=== PATIENT | male | born 1950 | race Caucasian/White ===

== ENCOUNTER 2017-01-15 15:53 | Emergency (ER) | payer MEDICARE ==
[~2017-01-15] VITALS: Ht 177.8 cm; Wt 95.0 kg
[~2017-01-15 15:53] MED LIST: ALLOPURINOL300 MG PO; AMARYL4 MG PO; ASPIRIN LOW DOS81 M2 PO; ASPIRIN325 MG PO; FLEXERIL OR; FOSINOPRIL SODI20 MG PO; FOSINOPRIL10 MG PO; FOSINOPRIL20 MG PO; GLIMEPIRIDE4 MG PO; HYDRALAZINE100 MG PO; HYDRALAZINE25 MG PO; HYDRALAZINE50 MG PO; JANUVIA100 MG PO; LIPITOR40 M1 PO; LIPITOR40 MG PO; LISINOPRIL20 MG PO; LORTAB 5-325 MG1 TAB PO; METFORMIN1000 MG PO; METFORMIN500 MG PO; METOPROLOL TART25 MG PO; METOPROLOL TART50 MG PO; NAPROSYN500 MG OR; PAXIL40 MG PO; PLAVIX75 MG PO; SERTRALINE100 MG PO; SERTRALINE50 MG PO; SOMA350 MG PO; TIZANIDINE4 MG PO; ZPAK PO; [UNRECOGNIZED DRUG - REMARK]
[2017-01-15] MEDS ORDERED: AUGMENTIN500TAB PO (16:54)
[2017-01-15 16:58] VITALS: BP 131/76
[2017-01-22] MEDS ORDERED: ASPIRIN81 MG PO (10:46)
[2017-01-22] MEDS ORDERED: METFORMIN500 MG PO (10:47)
[2017-01-22] MEDS ORDERED: SERTRALINE100 MG PO (10:47)
== END 2017-01-15 17:06 | disposition home or self-care (01) ==
LOC: ED 15:53
PROC: 0HDRXZZ Extraction of Toe Nail, External Approach (ICD-10-PCS; principal; 2017-01-15)
DX: S91.201A Unspecified open wound of right great toe with damage to nail, initial encounter (principal); W22.03XA Walked into furniture, initial encounter; Y92.009 Unspecified place in unspecified non-institutional (private) residence as the place of occurrence of the external cause

== ENCOUNTER 2017-01-25 07:55 | Day surgery (SDC) | payer MEDICARE ==
[~2017-01-25 07:55] MED LIST changes: +ASPIRIN81 MG PO; +AUGMENTIN500TAB PO
[2017-01-25 12:36] VITALS: BP 108/60
== END 2017-01-25 11:15 | disposition home or self-care (01) ==
LOC: ENDO 07:55 → ORM 10:45 → ENDO 10:45
PROVIDERS: ATTEND Internal Medicine Gastroenterology
PROC: 0DBK8ZX Excision of Ascending Colon, Via Natural or Artificial Opening Endoscopic, Diagnostic (ICD-10-PCS; principal; 2017-01-25)
PROC: 0DBL8ZX Excision of Transverse Colon, Via Natural or Artificial Opening Endoscopic, Diagnostic (ICD-10-PCS; 2017-01-25)
PROC: 0DBN8ZX Excision of Sigmoid Colon, Via Natural or Artificial Opening Endoscopic, Diagnostic (ICD-10-PCS; 2017-01-25)
PROC: 0DBP8ZX Excision of Rectum, Via Natural or Artificial Opening Endoscopic, Diagnostic (ICD-10-PCS; 2017-01-25)
PROC: 0DB58ZX Excision of Esophagus, Via Natural or Artificial Opening Endoscopic, Diagnostic (ICD-10-PCS; 2017-01-25)
DX: K59.00 Constipation, unspecified (principal); D12.7 Benign neoplasm of rectosigmoid junction; D12.2 Benign neoplasm of ascending colon; D12.3 Benign neoplasm of transverse colon; D12.5 Benign neoplasm of sigmoid colon; K64.8 Other hemorrhoids; K64.4 Residual hemorrhoidal skin tags; K21.9 Gastro-esophageal reflux disease without esophagitis; R13.10 Dysphagia, unspecified; K22.8 Other specified diseases of esophagus; K29.70 Gastritis, unspecified, without bleeding; Q40.8 Other specified congenital malformations of upper alimentary tract; Q39.8 Other congenital malformations of esophagus; F17.200 Nicotine dependence, unspecified, uncomplicated; I10 Essential (primary) hypertension; E11.9 Type 2 diabetes mellitus without complications; E78.00 Pure hypercholesterolemia, unspecified; Z80.0 Family history of malignant neoplasm of digestive organs

== ENCOUNTER → 2018-05-22 | Outpatient (REF) | END | disposition home or self-care (01) | DRG 642 | LOC: LAB 09:20 | PROVIDERS: ATTEND Internal Medicine Geriatric Medicine | DX: E78.5 Hyperlipidemia, unspecified (principal); I63.9 Cerebral infarction, unspecified; I10 Essential (primary) hypertension; E11.9 Type 2 diabetes mellitus without complications; M10.9 Gout, unspecified ==

== ENCOUNTER 2024-05-11 13:40 | Observation (INO) | payer MEDICARE ==
[~2024-05-11] VITALS: Ht 180.3 cm; Wt 96.1 kg
[2024-05-11] VITALS (38 sets, daily range): BP systolic 104–148; BP diastolic 48–101
[~2024-05-11 13:40] MED LIST changes: +AMLODIPINE BESYL5 MG PO; +METFORMIN HCL1000 MG PO; +TAMSULOSIN0.4 MG PO
--- NOTE | 2024-05-11 13:40 | NUR ---
PT TO ER ROOM 4 VIA EMS.
[2024-05-11] MEDS ORDERED: SODIUM CHLORIDE 0.9% 1,000 ML IV ONE (13:55)
[2024-05-11] MEDS ORDERED: cefTRIAXone SODIUM 2 GM in SODIUM CHLORIDE 0.9% 100 ML IV ONE (13:55)
[2024-05-11 14:03] LABS: URINE BLOOD DIPSTICK Trace-lysed (NEGATIVE); URINE GLUCOSE - DIPSTICK Negative (NEGATIVE); URINE KETONE Trace mg/dL (NEGATIVE); URINE NITRITE - DIPSTICK Negative (Negative); URINE PROTEIN - DIPSTICK 100 mg/dL (NEG-TRACE); URINE UROBILINOGEN - DIPSTICK 0.2 E.U./dL (0.2)
[2024-05-11 14:07] LABS: URINE COLOR Yellow; URINE LEUK ESTERASE Small (NEGATIVE)
[2024-05-11 14:26] LABS: URINE RBC 0-2 RBC/hpf (0-5)
[2024-05-11 14:27] LABS: URINE BACTERIA FEW hpf; URINE MUCUS MODERATE hpf (NONE-FEW); URINE SQUAMOUS EPITHELIAL CELL FEW EPI/hpf (0-FEW); URINE WBC 20-50 WBC/hpf (0-5)
--- NOTE | 2024-05-11 14:45 | NUR ---
PT URINATED ON HIMSELF. PT CLEANED AND LINEN CHANGED. EXERNAL MALE CATH CONNECTED.
[2024-05-11 15:21] LABS: BASO% 0.2 % (0-3); HEMATOCRIT 29.5 % (39.0-50.0); HEMOGLOBIN 8.8 g/dl (14.0-18.0); IMMATURE GRANULOCYTES 0.5 % (0.0-5.0); LYMPH% 8.8 % (15-41); MEAN CELL VOLUME 86.5 fL CALC (80.0-100.0); MEAN CORPUSCULAR HGB 25.8 pG CALC (26.0-32.0); MEAN CORPUSCULAR HGB CONC 29.8 g/dL CAL (32.0-36.0); MONO% 7.4 % (2-13); NEUT# 10.61 thou/uL (1.82-7.42); NEUT% 83.1 % (42-76); RED BLOOD COUNT 3.41 mill/uL (4.70-6.10); RED CELL DISTRI WIDTH 15.6 % (11.5-15.5)
[2024-05-11 15:32] LABS: ALBUMIN 3.3 g/dL (3.2-5.0); BILIRUBIN, TOTAL 0.7 mg/dL (0.2-1.3); CREATININE 1.3 mg/dL (0.7-1.3); TOTAL PROTEIN 6.4 g/dL (6.3-8.2)
--- NOTE | 2024-05-11 16:30 | NUR ---
PT RETURN FROM CT. PT HAS URINATED ON HIMSELF. PT CLEANED AND LINEN CHANGED.
[2024-05-11] MEDS ORDERED: ACETAMINOPHEN 325 MG/TAB PO PRN (17:25)
[2024-05-11] MEDS ORDERED: MAGNESIUM HYDROXIDE 30 ML UDC PO PRN (17:25)
--- NOTE | 2024-05-11 17:33 | NUR ---
PT UNAWARE OF MEDICATINS. PTS SISTER IS AT BEEDSIDE AND LEFT WITH PTS BELOBGING TO GO HOME AND GET MED LIST. SISTER RPORTS SHE WILL BRING LIST BACK TO [facility]
--- NOTE | 2024-05-11 19:11 | NUR ---
PT REPORT CALLED AND GIVEN TO ELYSIA IN ICU.
--- NOTE | 2024-05-11 20:17 | NUR ---
PT RESTING IN RM AWAITING RM IN ICU TO BE READY. CALL LIGHT WITHIN REACH AND PT HAS NO NEEDS OR CONCERNS AT THIS TIME.
[2024-05-11] MEDS ORDERED: METOPROLOL TARTRATE 25 MG/TAB PO SCH (21:00)
[2024-05-11] MEDS ORDERED: INSULIN LISPRO 100 UNITS/ML ML SC SCH (21:00)
[2024-05-11] MEDS ORDERED: ENOXAPARIN SODIUM 40 MG/0.4 ML SYR SC SCH (21:00)
[2024-05-11] MEDS ORDERED: hydrALAZINE HCL 25 MG/TAB PO SCH (21:00)
--- NOTE | 2024-05-11 21:12 | NUR ---
PT SITTING IN RM AWAITING RM TO BE READY STILL. CALL LIGHT WITHIN REACH AND PT HAS NO NEEDS OR CONCERNS AT THIS TIME. PTS SISTER BACK AND OUT OF RM AGITATED DUE TO THE PT NOT HAVING A WARM DINNER INSTEAD OF THE TURKEY WRAP THAT DAY SHIFT PROVIDED. SISTER STATED THAT THE PREVIOUS NURSE SAID THAT SHE WAS ORDERING A WARM DINNER TRAY FOR HIM DUE TO THE PT NOT LIKING TURKEY. SISTER WAS VERY UPSET ABOUT THIS AND LEFT TO GO GET THE PT FOOD. NURSING BROKE HANDLER ALEXANDRA NOTIFIED AND CHARGE NURSE OF ER NOTIFIED.
--- NOTE | 2024-05-11 22:25 | NUR ---
PATIENT TRANSPORTED TO ICU BY PRIMARY NURSE.
--- NOTE | 2024-05-11 22:28 | NUR ---
73 yr old white male admitted icu5 per stretcher from er as medsurg telemetry overflow. transferred x4 to bed. bed weight obtained. water technician shows sinus rhythm pacs. history obtained per pt er & old record. oriented to room. pure wick cath in place. fall precautions initiated.
[2024-05-12] VITALS (40 sets, daily range): BP systolic 105–138; BP diastolic 52–65
--- NOTE | 2024-05-12 00:01 | NUR ---
eyes closed. no distress. radiation monitor shows sinus rhythm pacs.
--- NOTE | 2024-05-12 04:00 | NUR ---
cardic monitor shows sinus rhythm pacs.
--- NOTE | 2024-05-12 06:48 | NUR ---
05/12/2024 @0625 PT GLUCOSE IS 104.
--- NOTE | 2024-05-12 07:25 | NUR ---
PT LAYING IN BED RESTING WITH EYES CLOSED, AROUSES EASILY TO VERBAL STIMULI, PT IS A&O X3, PUPILS PERRL, NORMAL S1 S2 HEART SOUNDS, TELE IN PLACE, RESP. EVEN AND UNLABORED, LUNG SOUNDS ARE CLEAR, ABD DISTENDED AND SOFT WITH ACTIVE BOWEL SOUNDS, 20G LH IV SL, STRONG RADIAL PULSES, WEAK PEDAL PULSES, PT HAS R SIDED WEAKNESS FROM A PREVIOUS STROKE, SAFETY MEASURES REINFORCED, CALL PEREYRA WITHIN REACH
[2024-05-12] MEDS ORDERED: LISINOPRIL 20 MG/TAB PO SCH (09:00)
[2024-05-12] MEDS ORDERED: CLOPIDOGREL BISULFATE 75 MG/TAB TAB PO SCH (09:00)
[2024-05-12] MEDS ORDERED: ASPIRIN 81 MG/TAB PO SCH (09:00)
[2024-05-12] MEDS ORDERED: amLODIPine BESYLATE 5 MG/TAB PO SCH (09:00)
[2024-05-12] MEDS ORDERED: TAMSULOSIN HCL 0.4 MG CAP PO SCH (09:00)
[2024-05-12] MEDS ORDERED: ALLOPURINOL 100 MG/TAB PO SCH (09:00)
[2024-05-12] MEDS ORDERED: SERTRALINE HCL 50 MG/TAB PO SCH (09:00)
--- NOTE | 2024-05-12 12:00 | NUR ---
SETUP ASSISTANCE PROVIDED WITH LUNCH TRAY AND REPOSTIONING, PT DENIES ANY NEEDS AT THIS TIME, VISITOR AT BEDSIDE, PT REMINDED TO CALL FOR ASSISTANCE, CALL PEREYRA WITHIN REACH
--- NOTE | 2024-05-12 16:00 | NUR ---
PT LAYING IN BED RESTING WITH EYES CLOSED, AROUSES EASILY TO VERBAL STIMULI, PT DENIES ANY NEEDS AT THIS TIME, CALL PEREYRA WITHIN REACH
--- NOTE | 2024-05-12 20:00 | NUR ---
awakens easily. denies distress. monitor technician shows sinus rhythm pacs. saline lock in place. po fluids taken fair. purewick cath in place. urine yellow. fall precautions & bed alarm conts.
[2024-05-12] MEDS ORDERED: ATORVASTATIN CALCIUM 40 MG/TAB PO SCH (21:00)
[2024-05-13] VITALS (19 sets, daily range): BP systolic 103–158; BP diastolic 52–82
--- NOTE | 2024-05-13 00:01 | NUR ---
crdiac monitor shows sinus rhythm pacs.
--- NOTE | 2024-05-13 04:30 | NUR ---
lab here. blood drawn. denise changed.
[2024-05-13 05:38] LABS: HEMATOCRIT 27.9 % (39.0-50.0); HEMOGLOBIN 8.5 g/dl (14.0-18.0); MEAN CELL VOLUME 85.8 fL CALC (80.0-100.0); MEAN CORPUSCULAR HGB 26.2 pG CALC (26.0-32.0); MEAN CORPUSCULAR HGB CONC 30.5 g/dL CAL (32.0-36.0); RED BLOOD COUNT 3.25 mill/uL (4.70-6.10); RED CELL DISTRI WIDTH 15.7 % (11.5-15.5)
[2024-05-13 05:51] LABS: ALBUMIN 2.9 g/dL (3.2-5.0); CREATININE 1.1 mg/dL (0.7-1.3); MAGNESIUM 1.5 mg/dL (1.6-2.3); POTASSIUM 4.6 mmol/l (3.5-5.1); TOTAL PROTEIN 5.8 g/dL (6.3-8.2)
[2024-05-13 05:58] LABS: BILIRUBIN, TOTAL 0.3 mg/dL (0.2-1.3)
[2024-05-13] MEDS ORDERED: MAGNESIUM SULFATE HEPTAHYDRATE 50 ML IV SCH (08:00)
--- NOTE | 2024-05-13 08:45 | NUR ---
PT REPORT RECEIVED FROM DEPENDENCY DIRECTOR. STATES HE DID GOOD THRU THE NIGHT, NO COMPLAINTS AT THIS TIME. ALERT/ORIENTED X3, STATES THINKS HE IS GOING HOME TODAY. ADVISED WE WILL TALK TO DOCTOR AND SEE WHAT HIS PLANS ARE
--- NOTE | 2024-05-13 11:05 | NUR ---
cleaned pt up with fresh linen, new brief used. pt had me turn off tv so he could take a nap, pt denies ay complaint at this time
--- NOTE | 2024-05-13 12:58 | NUR ---
family at bedside. speaking to dr. cleary, pt has agreed that he needs to go to rehab for a little bit because he could not get up with pt today to use walker
--- NOTE | 2024-05-13 16:13 | NUR ---
PT RESTING QUIETLY WATCHING TV AT THIS TIME, NO COMPLAINTS, VITAL SIGNS REMAIN STABLE. WILL CONTINUE TO MONITER.
--- NOTE | 2024-05-13 19:05 | NUR ---
awake. denies distress. cardiac tech shows sinus rhythm pvcs pacs. saline lock in place. po fluids taken fair. purewick cath in place. urine yellow. fall precautions & bed alarm conts.
[2024-05-14] VITALS (11 sets, daily range): BP systolic 118–150; BP diastolic 58–101
--- NOTE | 2024-05-14 00:01 | NUR ---
awake. no acute distress. dynamite shooter shows sinus rhythm pvcs.
--- NOTE | 2024-05-14 04:07 | NUR ---
awake. no c/o. rush seater shows sinus rhythm pvcs.
[2024-05-14 05:42] LABS: HEMATOCRIT 28.8 % (39.0-50.0); HEMOGLOBIN 8.9 g/dl (14.0-18.0); MEAN CELL VOLUME 85.5 fL CALC (80.0-100.0); MEAN CORPUSCULAR HGB 26.4 pG CALC (26.0-32.0); MEAN CORPUSCULAR HGB CONC 30.9 g/dL CAL (32.0-36.0); RED BLOOD COUNT 3.37 mill/uL (4.70-6.10); RED CELL DISTRI WIDTH 15.4 % (11.5-15.5)
[2024-05-14 05:49] LABS: ALBUMIN 2.9 g/dL (3.2-5.0); BILIRUBIN, TOTAL 0.3 mg/dL (0.2-1.3); MAGNESIUM 1.7 mg/dL (1.6-2.3); POTASSIUM 4.4 mmol/l (3.5-5.1); TOTAL PROTEIN 5.8 g/dL (6.3-8.2)
[2024-05-14] MEDS ORDERED: KEFLEX500 MG PO (07:46)
--- NOTE | 2024-05-14 07:47 | NUR ---
PT REPORT FROM PLANT MAINTENANCE ENGINEER , PT HAD LARGE BM YESTERDAY, REMAINS HAVING RIGHT SIDED WEAKNESS, CAN NOT USE ARM TO LIFT OR HOLD ANYTHING. VITAL SIGNS STABLE.
--- NOTE | 2024-05-14 10:18 | NUR ---
pt trying to get up out of bed, explained that he needed to get back in bed, pt began yelling and cussing at staff that we could not make him get back in bed, he wanted to walk to bathroom, pt shaking from upper arms while trying to push himself off of bed, unable to stand on own. told him we could help him to bedside commode, he refused and said you cant make me do anything, i will get an criminal defense attorney and natalie you if you touch me and make me get back into bed. shey icu director notified to come help place pt back in bed laying down.
--- NOTE | 2024-05-14 10:35 | NUR ---
shey sitting and speaking with pt, pt states he will not use the bedside commode he will just lay in bed and "shit himself". security was asked to round on pt.
--- NOTE | 2024-05-14 12:16 | NUR ---
pt has calmed down at this time, and is laughing and joking with staff, eating lunch, vital signs stable
[2024-05-14] MEDS ORDERED: NICOTINE TRANSDERMAL 21 MG/PATCH TD SCH (13:15)
--- NOTE | 2024-05-14 14:16 | NUR ---
pt able to take very few steps with telegraphic typewriter repairer. pt able to sit on side of bed with minimal assistance but max assist to stand when transferring from bed to bsc due to mobility/weakness issues on right side of body.
--- NOTE | 2024-05-14 15:30 | NUR ---
MEDICAL TRANSPORT HERE TO [facility]OCK [facility] PT. REPORT CALLED TO YASSINE AT REHAB FOR CONTINUATION OF CARE. RX SENT WITH PT.
== END 2024-05-14 15:35 ==
LOC: ED 13:40 → ED-I 17:10 → ED 17:21 → ICU 17:22
PROVIDERS: Family Medicine; ADMIT Internal Medicine; ATTEND Internal Medicine
DX: A41.9 Sepsis, unspecified organism (principal); N39.0 Urinary tract infection, site not specified; B96.20 Unspecified Escherichia coli [E. coli] as the cause of diseases classified elsewhere; I10 Essential (primary) hypertension; E11.9 Type 2 diabetes mellitus without complications; I69.351 Hemiplegia and hemiparesis following cerebral infarction affecting right dominant side; Z79.84 Long term (current) use of oral hypoglycemic drugs; Z91.81 History of falling; Z20.822 Contact with and (suspected) exposure to COVID-19
CPT/HCPCS: J0696; J1650; J1815; J3475; Q9967